=== PATIENT | male | born 1975 | race Hispanic/Latino ===

== ENCOUNTER 2021-06-03 16:11 | Emergency (ER) | payer SELFPAY ==
[~2021-06-03] VITALS: Ht 182.9 cm; Wt 93.0 kg
[2021-06-03] MEDS ORDERED: TETANUS/DIPHTHERIA TOX ADULT 0.5 ML SYR IM ONE (17:00)
[2021-06-03] MEDS ORDERED: LIDOCAINE 1% 5ML-MPF INJ ONE (17:15)
[2021-06-03] MEDS ORDERED: SODIUM CHLORIDE 0.9% 50ML 50 ML ONE (17:23)
[2021-06-03] MEDS ORDERED: Cefazolin 1 GM in SODIUM CHLORIDE 0.9% 50ML 50 ML IV SCH (18:00)
[2021-06-03] MEDS ORDERED: CEPHALEXIN500 MG PO (18:31)
[2021-06-03] MEDS ORDERED: MOTRIN800 MG PO (18:31)
== END 2021-06-03 18:35 | disposition home or self-care (01) ==
LOC: ER 16:29
DX: S66.822A Laceration of other specified muscles, fascia and tendons at wrist and hand level, left hand, initial encounter (principal); W27.0XXA Contact with workbench tool, initial encounter; Y92.008 Other place in unspecified non-institutional (private) residence as the place of occurrence of the external cause; F17.210 Nicotine dependence, cigarettes, uncomplicated
CPT/HCPCS: 12002; 73130; 90471; 90714; 99283; J0690